=== PATIENT | female | born 1985 | race Caucasian/White ===

== ENCOUNTER 2017-08-08 05:00 | Inpatient (IN) ==
[2017-08-05 09:50] LABS: HEMATOCRIT 41.1 % (37.0-47.0); HEMOGLOBIN 13.5 g/dL (12.0-16.0); MCHC 32.8 g/dL (33-37); MCV 88.2 FL (81-99); MPV 10.4 FL (7.4-10.4); RBC 4.66 XMIL (4.2-5.4)
[2017-08-08] MEDS ORDERED: REGLAN PO ONE (05:08)
[2017-08-08] MEDS ORDERED: PEPCID PO ONE (05:08)
[2017-08-08] MEDS ORDERED: KEFZOL 1 GM/D5W 1 GM/50 ML IVPB IV PRN (05:08)
[2017-08-08] MEDS ORDERED: LR 1,000 ML IV SCH (05:08)
[2017-08-08 06:20] LABS: URINE SOURCE VOIDED
[2017-08-08 06:20] LABS: MANUAL DIFF NEEDED? NO
[2017-08-08 06:22] LABS: BASO% 0.2 % (0.0-0.8); EOS# 0.06 X1000 (0.0-0.7); EOS% 0.7 % (0.0-10.0); HEMATOCRIT 38.4 % (37.0-47.0); HEMOGLOBIN 12.7 g/dL (12.0-16.0); IMM GRAN# 0.01 X1000 (0.0-0.04); IMM GRAN% 0.1 % (0.0-0.5); LYMPH# 1.86 X1000 (1.2-3.4); LYMPH% 22.3 % (20.5-51.1); MCH 29.1 PG (27-31); MCHC 33.1 g/dL (33-37); MCV 88.1 FL (81-99); MONO# 0.58 X1000 (0.11-0.59); MPV 10.9 FL (7.4-10.4); NEUT% 69.7 % (42.2-75.2); PLT 219 X1000 (130-400); RBC 4.36 XMIL (4.2-5.4)
[2017-08-08 06:30] LABS: BILIRUBIN URINE NEGATIVE (NEGATIVE); BLOOD URINE TRACE (NEGATIVE); CLARITY SL. CLOUDY (CLEAR); COLOR YELLOW; GLUCOSE URINE NEGATIVE (NEGATIVE); LEUKOCYTES URINE 2+ (NEGATIVE); NITRITE URINE NEGATIVE (NEGATIVE); PROTEIN URINE NEGATIVE (NEGATIVE); UROBILINOGEN URINE NORMAL
[2017-08-08] MEDS ORDERED: SODIUM CHLORIDE 0.9% INJ ONE (06:45)
[2017-08-08] MEDS ORDERED: PEPCID IV ONE (06:45)
[2017-08-08] MEDS ORDERED: BICITRA PO ONE (06:45)
[2017-08-08 06:46] LABS: UR AMPHETAMINES QUAL NONE DETECTED (NONE DETECT); UR BARBITUATES QUAL NONE DETECTED (NONE DETECT); UR BENZODIAZEPIN QUAL NONE DETECTED (NONE DETECT); UR CANNABINOIDS QUAL NONE DETECTED (NONE DETECT); UR COCAINE QUAL NONE DETECTED (NONE DETECT); UR MDMA QUAL NONE DETECTED (NONE DETECT); UR METHADONE QUAL NONE DETECTED (NONE DETECT); UR METHAMPHETAMINE QUAL NONE DETECTED (NONE DETECT); UR OPIATES QUAL NONE DETECTED (NONE DETECT); UR OXYCODONE QUAL NONE DETECTED (NONE DETECT); UR PCP QUAL NONE DETECTED (NONE DETECT); UR TCA QUAL NONE DETECTED (NONE DETECT)
[2017-08-08] MEDS ORDERED: DURAMORPH ONE (06:48)
[2017-08-08] MEDS ORDERED: PITOCIN ONE ×2 (07:26→07:58)
[2017-08-08] MEDS ORDERED: TORADOL ONE (07:26)
[2017-08-08] MEDS ORDERED: SODIUM CHLORIDE 0.9% 20 ML ONE (07:26)
[2017-08-08] MEDS ORDERED: NEO-SYNEPHRINE ONE (07:26)
[2017-08-08] MEDS ORDERED: ZOFRAN ONE (07:26)
[2017-08-08] MEDS ORDERED: NARCAN INJ PRN (08:53)
[2017-08-08] MEDS ORDERED: ZOFRAN ODT PO PRN (08:53)
[2017-08-08] MEDS ORDERED: BENADRYL IV PRN (08:53)
[2017-08-08] MEDS ORDERED: ZOFRAN IV PRN ×2 (08:53)
[2017-08-08] MEDS ORDERED: MYLICON PO PRN (09:10)
[2017-08-08] MEDS ORDERED: PITOCIN IM PRN (09:10)
[2017-08-08] MEDS ORDERED: M-M-R II VACCINE SUBQ ONE (09:10)
[2017-08-08] MEDS ORDERED: PHENERGAN IM PRN (09:10)
[2017-08-08] MEDS ORDERED: DULCOLAX PR PRN (09:10)
[2017-08-08] MEDS ORDERED: HYDROXYZINE IM PRN (09:10)
[2017-08-08] MEDS ORDERED: NORCO-5 PO PRN (09:10)
[2017-08-08] MEDS ORDERED: BOOSTRIX VACCINE IM ONE (09:10)
[2017-08-08] MEDS ORDERED: HYDROXYZINE PO PRN (09:10)
[2017-08-08] MEDS ORDERED: DEMEROL IM PRN (09:10)
[2017-08-08] MEDS ORDERED: DEMEROL PO PRN ×2 (09:10)
[2017-08-08] MEDS ORDERED: PITOCIN 20 UNITS/LR 20 UNITS/1,000 ML IV.SOLN IV ONE (09:10)
[2017-08-08] MEDS ORDERED: AMBIEN PO PRN (09:10)
[2017-08-08] MEDS: TORADOL IV SCH ×4 (09:20→20:41)
[2017-08-08] MEDS ORDERED: LR 1,000 ML ONE (10:17)
[2017-08-08] MEDS: PRECARE PO SCH (10:54)
[2017-08-08] MEDS: MYLICON PO SCH ×5 (10:54→20:41)
[2017-08-08] MEDS ORDERED: FLUZONE QUAD 2017-2018 SYRINGE IM ONE (11:45)
[2017-08-08] MEDS: MORPHINE IV PRN ×2 (12:55→18:31)
[2017-08-08] MEDS: PITOCIN 10 UNITS/LR 10 UNIT/1,000 ML IV.SOLN IV SCH ×2 (15:01→22:52)
[2017-08-08] MEDS: PERICOLACE PO SCH (20:41)
[2017-08-09] MEDS: TORADOL IV SCH (05:57)
[2017-08-09 06:06] LABS: MANUAL DIFF NEEDED? NO
[2017-08-09 06:10] LABS: BASO% 0.3 % (0.0-0.8); EOS# 0.04 X1000 (0.0-0.7); EOS% 0.4 % (0.0-10.0); HEMATOCRIT 33.2 % (37.0-47.0); HEMOGLOBIN 10.9 g/dL (12.0-16.0); IMM GRAN# 0.01 X1000 (0.0-0.04); IMM GRAN% 0.1 % (0.0-0.5); LYMPH# 1.34 X1000 (1.2-3.4); LYMPH% 13.3 % (20.5-51.1); MCH 29.4 PG (27-31); MCHC 32.8 g/dL (33-37); MCV 89.5 FL (81-99); MONO# 0.52 X1000 (0.11-0.59); MONO% 5.1 % (1.7-9.3); MPV 10.3 FL (7.4-10.4); NEUT% 80.8 % (42.2-75.2); PLT 246 X1000 (130-400); RBC 3.71 XMIL (4.2-5.4)
[2017-08-09] MEDS: MYLICON PO SCH ×4 (07:59→20:34)
[2017-08-09] MEDS: PRECARE PO SCH (08:00)
[2017-08-09] MEDS ORDERED: LR 1,000 ML IV SCH (08:10)
[2017-08-09] MEDS: MOTRIN PO PRN (13:31)
[2017-08-09] MEDS: NORCO-10 PO PRN (20:34)
[2017-08-09] MEDS: PERICOLACE PO SCH (20:34)
[2017-08-10] MEDS: MOTRIN PO PRN (03:50)
[2017-08-10] MEDS: NORCO-10 PO PRN (03:50)
[2017-08-10 08:34] VITALS: BP 94/58
[2017-08-10] MEDS: MYLICON PO SCH (08:43)
[2017-08-10] MEDS: PRECARE PO SCH (08:43)
== END 2017-08-10 12:05 | disposition home or self-care (01) ==
LOC: P.LD 05:00 → P.WC 09:57
PROVIDERS: ADMIT Obstetrics & Gynecology; ATTEND Obstetrics & Gynecology